=== PATIENT | female | born 1965 | race Caucasian/White ===

== ENCOUNTER 2017-07-23 01:42 | Emergency (ER) | payer MEDICAID ==
[~2017-07-23] VITALS: Ht 157.5 cm; Wt 92.5 kg
[2017-07-23 01:49] VITALS: BP 143/99
--- NOTE | 2017-07-23 02:00 | NUR ---
PT AMBULATED TO ER CHAIR JOAN
--- NOTE | 2017-07-23 02:02 | NUR ---
PATIENT IS A 52 Y/O FEMALE WHO PRESENTS TO THE ED C/O ALLERGIC REACTION. PT STATES, "I HAD SOME SHRIMP AND I BROKE OUT IN RASHES." PT DENIES PAIN. NOTED BODILY RASHES AND PATIENT REPORTS ITCHINESS. PT DENIES CP, SOB, REPORTS NAUSEA DENIES VOMITING/DIARRHEA. PT AAOX4, RR EVEN/UNLABORED. PT REPOSITIONED FOR COMFORT, PT SITTING IN CHAIR. ER MD DR. DAVIES NOTIFIED. WILL CONTINUE TO MONITOR.
[2017-07-23] MEDS ORDERED: methylPREDNISolone SS 125 MG/2 ML VIAL ONE (02:38)
[2017-07-23] MEDS: FAMOTIDINE 20 MG TAB PO ONE (02:51)
[2017-07-23] MEDS: methylPREDNISolone SS 125 MG in WATER STERILE 2 ML IM ONE (02:51)
[2017-07-23] MEDS: LORATADINE 10 MG TAB PO ONE (02:51)
--- NOTE | 2017-07-23 03:40 | NUR ---
Patient discharged with v/s stable. Written and verbal after care instructions given and explained. Patient alert, oriented and verbalized understanding of instructions. Ambulatory with steady gait. All questions addressed prior to discharge. ID band removed. Patient advised to follow up with PMD. Rx of MEDROL DOSEPAK 4MG given. Patient educated on indication of medication including possible reaction and side effects. Opportunity to ask questions provided and answered.
[2017-07-23 03:48] VITALS: BP 139/88
== END 2017-07-23 03:40 | disposition home or self-care (01) ==
LOC: MED 01:42
DX: L50.0 Allergic urticaria (principal); Z91.013 Allergy to seafood
CPT/HCPCS: 96372; 99283; J2930